=== PATIENT | male | born 1940 | race African-American/Black ===

== ENCOUNTER → 2020-08-04 | Outpatient (CLI) | payer OTHER, MEDICARE | LOC: CAT 10:01 | PROVIDERS: ATTEND Family Medicine | DX: G45.9 Transient cerebral ischemic attack, unspecified (principal); R42 Dizziness and giddiness; M54.2 Cervicalgia ==

== ENCOUNTER → 2020-09-01 | Outpatient (CLI) | payer OTHER, MEDICARE | LOC: SJCVC 13:16 | PROVIDERS: ATTEND Internal Medicine Cardiovascular Disease | DX: R94.31 Abnormal electrocardiogram [ECG] [EKG] (principal); I44.0 Atrioventricular block, first degree; I44.2 Atrioventricular block, complete; I45.2 Bifascicular block; R55 Syncope and collapse; E78.5 Hyperlipidemia, unspecified; N40.0 Benign prostatic hyperplasia without lower urinary tract symptoms; Z79.899 Other long term (current) drug therapy; Z72.89 Other problems related to lifestyle ==

== ENCOUNTER → 2020-09-07 | Outpatient (CLI) | payer OTHER, MEDICARE | LOC: SJCVCIMAG 07:37 | PROVIDERS: ATTEND Internal Medicine Cardiovascular Disease | DX: I08.3 Combined rheumatic disorders of mitral, aortic and tricuspid valves (principal); R07.89 Other chest pain ==

== ENCOUNTER 2020-09-20 06:20 | Observation (INO) | payer OTHER, MEDICARE ==
[2020-09-20] VITALS (14 sets, daily range): BP systolic 114–151; BP diastolic 65–86
[~2020-09-20] VITALS: Ht 167.6 cm; Wt 86.9 kg
--- NOTE | ~2020-09-20 | P ---
[facility] [place] [address] PROCEDURE REPORT Name: GIULIANO CHRISTINE Room #: 212-P [facility] Juan Carlos Steiner.#: [id number] Admission: 09/20/20 Attend Phys: Anoop Vega MD Discharge: 09/21/20 Date of : 42 Report #: [id number] THIS REPORT FOR: cc: Rocco Rader MD, Neal A. MD Couchonnal, Luis F. MD ~ DATE OF SERVICE: 09/20/2020 PROCEDURE: Pacemaker implantation. PREOPERATIVE DIAGNOSIS: Heart block. POSTOPERATIVE DIAGNOSIS: Heart block. 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 ANESTHESIA: The patient underwent MAC anesthesia with no anesthesia related complications. DESCRIPTION OF PROCEDURE: The patient underwent informed consent as previously documented. He was brought to the EP laboratory in fasting and unsedated state, prepped and draped in a standard fashion, received IV antibiotics, underwent a venogram showing patency of left axillary vein. Next, lidocaine was injected below the level of left clavicle. Incision was made, pocket created over the prepectoral fascia. Access was obtained twice to left axillary vein. Sheaths positioned using the modified Seldinger technique and leads were positioned in the right ventricle and right atrium with adequate pacing and sensing thresholds. The leads were sutured to the prepectoral fascia, tested and found to be functioning normally, connected to the device. Tug test performed. Pocket was irrigated with vancomycin. Pocket closed in two layers and surgical glue placed to outer skin layer. The patient awoke neurologically and hemodynamically intact. No complications. No significant bleeding. The implanted pacemaker was a Medtronic model number W3DR01, serial number [id number]. The atrial lead was a 5076, model number [id number]. The RV lead was a 5076, 58 cm, serial number [id number]. Atrial lead demonstrated a P-wave of 3.3 millivolts, pacing impedance of 720 ohms, pacing threshold 0.7 volts at 0.5 milliseconds. RV lead demonstrated R waves of 7.7 millivolts, pacing impedance 701 ohms, pacing threshold 0.8 volts at 0.5 milliseconds. Device was programmed to the AAI/DDD mode. CONCLUSION: [facility] [address] [place] [address] PROCEDURE REPORT Name: GIULIANO CHRISTINE Room #: 212-P [facility] Juan Carlos Chacon#: [id number] Admission: 09/20/20 Attend Phys: Anoop Vega MD Discharge: 09/21/20 Date of : 42 Report #: [id number] 1. Successful dual chamber pacemaker implantation. 2. Satisfactory atrial and ventricular pacing and sensing thresholds. By: [id number] Anoop Vega MD /nt
[2020-09-20] MEDS ORDERED: LIPITOR10 MG PO (07:46)
[2020-09-20] MEDS ORDERED: MELOXICAM15 MG PO (07:47)
[2020-09-20] MEDS ORDERED: NEURONTIN300 MG PO (07:47)
[2020-09-20 07:55] LABS: ABSOLUTE NEUTROPHILS 4.3 thou/uL (1.4-8.2); BASOPHILS 0.8 % (0.0-2.0); EOSINOPHILS 3.7 % (0.0-3.0); HEMATOCRIT 45.1 % (42.0-52.0); HEMOGLOBIN 14.8 gm/dL (14.0-18.0); LYMPHOCYTES 20.9 % (24.0-44.0); MCH 30.1 pg (26.0-34.0); MCHC 32.8 g/dL (28.0-37.0); MCV 91.6 fL (80.0-100.0); MONOCYTES 8.3 % (1.0-8.0); PLATELET COUNT 285 thou/uL (150-400); POLYS 66.3 % (36.0-66.0); RBC 4.92 mil/uL (4.50-6.00); RDW 14.3 % (10.5-14.5); WBC 6.5 thou/uL (4.0-11.0)
[2020-09-20 08:03] LABS: CALCIUM 8.6 mg/dL (8.5-10.1); CREATININE 1.1 mg/dL (0.7-1.3); POTASSIUM 4.5 mmol/L (3.5-5.1)
[2020-09-20 08:09] LABS: ALBUMIN 3.7 g/dL (3.4-5.0); TOTAL BILIRUBIN 0.4 mg/dL (0.2-1.0); TOTAL PROTEIN 7.7 g/dL (6.4-8.2)
[2020-09-20 08:14] LABS: APTT 27.3 Seconds (24.5-32.8); INR 0.97; PROTIME 10.6 Seconds (10.5-12.1)
[2020-09-21 00:45] VITALS: BP 136/76
--- NOTE | 2020-09-21 04:17 | NUR ---
PT ON BEDREST WITH IMMOBILIZER ON, VSS, INCISION CDI, PRN PAIN MED GIVEN AT HS FOR INCISIONAL PAIN, RESTING QUIETLY IN ROOM THRU SHIFT, HOPES TO GO HOME TODAY. WILL CON'T TO MONITOR PER PPOC.
[2020-09-21 04:45] VITALS: BP 143/92
[2020-09-21 08:00] VITALS: BP 138/78
[2020-09-21 09:59] VITALS: BP 143/92
--- NOTE | 2020-09-21 11:05 | NUR ---
PATIENT PROVIDED WITH DISCHARGE INSTRUCTIONS. HE VERBALIZED UNDERSTANDING AND HAD NO FURTHER QUESTIONS OR CONCERNS. IMMOBILIZER ON AT TIME OF DISCHARGE. HE WAS INSTRUCTED TO WEAR UNTIL TOMORROW MORNING AND WHILE SLEEPING. BELONGINGS PACKED AND SENT WITH PATIENT.
== END 2020-09-21 11:09 | disposition home or self-care (01) ==
LOC: CATH 06:20 → 2N 11:13 → CATH 12:11 → 2N 09-21 11:09
PROVIDERS: ADMIT Internal Medicine Cardiovascular Disease; ATTEND Internal Medicine Cardiovascular Disease
DX: I44.2 Atrioventricular block, complete (principal); R55 Syncope and collapse; E78.5 Hyperlipidemia, unspecified; N40.0 Benign prostatic hyperplasia without lower urinary tract symptoms; Z79.899 Other long term (current) drug therapy
CPT/HCPCS: 62110; 62900; 70005

== ENCOUNTER → 2020-12-20 | Outpatient (CLI) | payer OTHER, MEDICARE ==
[~2020-12-20] MED LIST: LIPITOR10 MG PO; MELOXICAM15 MG PO; NEURONTIN300 MG PO
== END ==
LOC: SJCVC 10:38
PROVIDERS: ATTEND Internal Medicine Cardiovascular Disease
DX: R94.31 Abnormal electrocardiogram [ECG] [EKG] (principal); I45.4 Nonspecific intraventricular block; I44.0 Atrioventricular block, first degree; I44.2 Atrioventricular block, complete; I10 Essential (primary) hypertension; E78.2 Mixed hyperlipidemia; Z95.0 Presence of cardiac pacemaker; Z79.899 Other long term (current) drug therapy; Z72.89 Other problems related to lifestyle

== ENCOUNTER → 2020-12-26 | Outpatient (CLI) | payer OTHER | LOC: CAT 08:33 | PROVIDERS: ATTEND Family Medicine | DX: Z13.6 Encounter for screening for cardiovascular disorders (principal); I25.10 Atherosclerotic heart disease of native coronary artery without angina pectoris; E78.00 Pure hypercholesterolemia, unspecified ==

== ENCOUNTER → 2021-04-12 | Outpatient (CLI) | payer OTHER, MEDICARE | LOC: SJCVC 14:19 | PROVIDERS: ATTEND Internal Medicine Cardiovascular Disease | DX: R94.31 Abnormal electrocardiogram [ECG] [EKG] (principal); I44.0 Atrioventricular block, first degree; I49.1 Atrial premature depolarization; I45.4 Nonspecific intraventricular block; R93.1 Abnormal findings on diagnostic imaging of heart and coronary circulation; I10 Essential (primary) hypertension; I48.0 Paroxysmal atrial fibrillation; I48.3 Typical atrial flutter; Z95.0 Presence of cardiac pacemaker; N40.0 Benign prostatic hyperplasia without lower urinary tract symptoms; Z79.82 Long term (current) use of aspirin; Z79.899 Other long term (current) drug therapy; Z98.890 Other specified postprocedural states ==